=== PATIENT | male | born 1995 | race Caucasian/White ===

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

== ENCOUNTER → 2017-06-18 | Outpatient (CLI) | payer BC ==
[2017-06-18 12:30] LABS: ESTIMATED AVERAGE GLUCOSE 97 mg/dl; HA1C FLAG Normal (Normal)
[2017-06-18 12:39] LABS: ALT/SGPT 63 U/L (12-78); BLOOD UREA NITROGEN 7 mg/dl (7-18); CALCIUM 9.4 mg/dl (8.5-10.1); CARBON DIOXIDE 27 mmol/L (21-32); CHLORIDE 107 mmol/L (98-107); GLUCOSE 80 mg/dl (70-99); POTASSIUM 3.9 mmol/L (3.5-5.1); SODIUM 140 mmol/L (136-145)
[2017-06-18 12:42] LABS: ALB/GLOB RATIO 1.1 (0.9-2); ALKALINE PHOSPHATASE 63 U/L (45-117); AST/SGOT 25 U/L (15-37)
== END | disposition home or self-care (01) ==
LOC: C.LAB1850 11:04
PROVIDERS: ATTEND Nurse Practitioner Adult Health
DX: Z20.2 Contact with and (suspected) exposure to infections with a predominantly sexual mode of transmission (principal); I10 Essential (primary) hypertension; R73.03 Prediabetes; R74.0 Nonspecific elevation of levels of transaminase and lactic acid dehydrogenase [LDH]; F32.9 Major depressive disorder, single episode, unspecified

== ENCOUNTER → 2017-06-26 | Outpatient (CLI) | payer BC ==
[2017-06-27 14:32] LABS: HSV TYPE 1 DNA Not Detected (Not Detected); HSV TYPE 1&2 DNA SOURCE Serum; HSV TYPE 2 DNA Not Detected (Not Detected)
[2017-06-30 02:35] LABS: CHLAMYDIA TRACH RNA*** NOT DETECTED (NOT DETECTED); GC (NEIS GONORRHOEAE)RNA** NOT DETECTED (NOT DETECTED)
== END | disposition home or self-care (01) ==
LOC: C.LAB1850 10:16
PROVIDERS: ATTEND Nurse Practitioner Adult Health
DX: Z20.2 Contact with and (suspected) exposure to infections with a predominantly sexual mode of transmission (principal)

== ENCOUNTER → 2017-10-16 | Outpatient (CLI) | payer BC ==
--- NOTE | 2017-10-16 16:21 | DIAGNOSTIC IMAGING REPORT ---
FUSION CT SINUSES W/O CLINICAL HISTORY: 22 years-old Male presenting with CHRONIC SINUSITIS. TECHNIQUE: Multidetector CT of the sinus was performed without the use of intravenous contrast. IV contrast: None. A dose lowering technique was used consistent with the principles of ALARA (as low as reasonably achievable). COMPARISON: None. CT DOSE (mGy.cm): The estimated cumulative dose is 675.53. FINDINGS: [employer] topogram: Unremarkable. Mild mucosal thickening in the maxillary sinuses inferiorly. Postsurgical changes of maxillary antrostomies. Mucosal thickening in ethmoid air cells also evident. Gas noted in the nasolacrimal ducts. Mild mucosal thickening in the left frontal sinus. Mastoid air cells and middle ears are clear. Sphenoid sinuses clear. Bony nasal septum minimally deviated to the left. No bony bridging. Suspected postsurgical changes of ethmoidectomies and turbinectomies. No osseous erosion. No sclerosis of the sinus bah to suggest chronic sinusitis. No significant anatomic variant. No bony dehiscence of the optic canals or carotid siphons. Orbits normal. Limited evaluation of the soft tissues of the face within normal limits. Intracranial evaluation within normal limits. Upper cervical spine normal. IMPRESSION: Scattered mucosal thickening primarily of maxillary sinuses and ethmoid air cells. Postsurgical changes of bilateral maxillary antrostomies, ethmoidectomies, and turbinectomies suspected. No current evidence of acute or chronic sinusitis. Electronically signed by: Burak Barlow M.D. 10/16/2017 4:19 PM Dictated Date/Time: 10/16/2017 4:14 PM
== END | disposition home or self-care (01) ==
LOC: C.CTS 15:52
PROVIDERS: ATTEND Physician Assistant
DX: J34.89 Other specified disorders of nose and nasal sinuses (principal)